=== PATIENT | female | born 1930 | race Caucasian/White ===

== ENCOUNTER 2016-04-04 16:41 | Emergency (ER) | payer MEDICARE, OTHER ==
--- NOTE | 2016-04-04 17:48 | Emergency Department Record ---
History of Present Illness - General Chief Complaint: Fall Injury Stated Complaint: FALL INJURY,FACE HAND,LEG Time Seen by Provider: 04/04/16 16:54 Source: Patient Mode of Arrival: Wheelchair Limitations: No limitations - History of Present Illness Initial Comments: pt tripped over a laundry basket and injured her r hand and r hip and l cheek. no loc. MD Complaint: Fall Onset/Timin -: Hour(s) Fall From: Standing When Fall Occurred: 1 hour [employer] Fall Witnessed: No Place Fall Occurred: Home Loss of Consciousness: None Prolonged Down Time?: No Symptoms Prior to Fall: None Location: Face, Other Location - Extremities: Right: Hand, Thigh Severity: Mild Severity scale (1-10): 3 Quality: Aching Context: Tripped/slipped Associated Symptoms: Denies - Mark Coma Scale Eye Response: (4) Open spontaneously Motor Response: (6) Obeys commands Verbal Response: (5) Oriented Mark Total: 15 - Related Data Home Medications Medication Instructions Recorded Confirmed Last Taken Levothyroxine Sodium [Synthroid] 75 mcg PO DAILY 03/24/15 04/04/16 04/04/16 Donepezil HCl [Aricept] 5 mg PO DAILY 08/12/15 04/04/16 04/04/16 Losartan Potassium [Cozaar] 100 mg PO DAILY 08/12/15 04/04/16 04/04/16 Nebivolol HCl [Bystolic] 10 mg PO DAILY 08/12/15 04/04/16 04/04/16 Clonidine [Clonidine] 1 patch TOP DAILY 10/21/15 04/04/16 04/04/16 Memantine HCl 5 mg PO BID 10/21/15 04/04/16 04/04/16 Aspirin 81 mg PO DAILY 04/04/16 04/04/16 04/04/16 Allergies Allergy/AdvReac Type Severity Reaction Status Date / Time No Known Drug Allergies Allergy Verified 04/04/16 16:46 Travel Screening - Travel/Exposure Within Last 30 Days Have you traveled within the last 30 days?: No Review of Systems Reviewed: No additional complaints except as noted below Constitutional: Reports: As per HPI. Denies: Chills, Fever, Malaise, Night sweats, Weakness, Weight change Eyes: Reports: As per HPI. Denies: Eye discharge, Eye pain, Photophobia, Vision change ENT: Reports: As per HPI. Denies: Congestion, Dental pain, Ear pain, Epistaxis , Hearing loss, Throat pain Respiratory: Reports: As per HPI. Denies: Cough, Dyspnea, Hemoptysis, Stridor, Wheezes Cardiovascular: Reports: As per HPI. Denies: Arrhythmia, Chest pain, Dyspnea on exertion, Edema, Murmurs, Orthopnea, Palpitations, Paroxysmal nocturnal dyspnea, Rheumatic Fever, Syncope Endocrine: Reports: As per HPI. Denies: Fatigue, Heat or cold intolerance, Polydipsia, Polyuria Gastrointestinal: Reports: As per HPI. Denies: Abdominal pain, Constipation, Diarrhea, Hematemesis, Hematochezia, Melena, Nausea, Vomiting Genitourinary: Reports: As per HPI. Denies: Abnormal menses, Discharge, Dyspareunia, Dysuria, Frequency, Hematuria, Incontinence, Retention, Urgency Musculoskeletal: Reports: As per HPI. Denies: Arthralgia, Back pain, Gout, Joint swelling, Myalgia, Neck pain Skin: Reports: As per HPI. Denies: Bruising, Change in color, Change in hair/ nails, Lesions, Pruritus, Rash Neurological: Reports: As per HPI. Denies: Abnormal gait, Confusion, Headache, Numbness, Paresthesias, Seizure, Tingling, Tremors, Vertigo, Weakness Psychiatric: Reports: As per HPI. Denies: Anxiety, Auditory hallucinations, Depression, Homicidal thoughts, Suicidal thoughts, Visual hallucinations Hematological/Lymphatic: Reports: As per HPI. Denies: Anemia, Blood Clots, Easy bleeding, Easy bruising, Swollen glands Past Medical History - SOCIAL HISTORY Smoking Status: Former smoker Alcohol Use: None Drug Use: None - RESPIRATORY Hx Respiratory Disorders: No - CARDIOVASCULAR Hx Cardio Disorders: Yes Hx Abnormal EKG: Yes Hx Chest Pain: Yes Hx Hypertension: Yes - NEURO Hx Neuro Disorders: No - GI Hx GI Disorders: No - Hx Genitourinary Disorders: No - ENDOCRINE Hx Endocrine Disorders: Yes Hx Thyroid Disease: Yes - MUSCULOSKELETAL Hx Musculoskeletal Disorders: No - PSYCH Hx Psych Problems: No - HEMATOLOGY/ONCOLOGY Hx Hematology/Oncology Disorders: Yes Hx Cancer: Yes (breast) Family Medical History Any Significant Family History?: Yes Hx Heart Disease: Father Physical Exam - General General Appearance: Alert, Oriented x3, Cooperative, Mild distress - Head Head exam: Normal inspection Head exam detail: Abrasion, Contusion Image of Face/Head: 1 - abrasions and contusions - Eye Eye exam: Normal appearance, PERRL, EOMI Pupils: Normal accommodation - ENT ENT exam: Normal exam, Mucous membranes moist, Normal external ear exam, Normal orophraynx, TM's normal bilaterally Ear exam: Normal external inspection. negative: External canal tenderness Nasal Exam: Normal inspection. negative: Discharge, Sinus tenderness Mouth exam: Normal external inspection, Tongue normal Teeth exam: Normal inspection. negative: Dental caries Throat exam: Normal inspection. negative: Tonsillar erythema, Tonsillar exudate - Neck Neck exam: Normal inspection, Full ROM. negative: Tenderness - Respiratory Respiratory exam: Normal lung sounds bilaterally. negative: Respiratory distress - Cardiovascular Cardiovascular Exam: Regular rate, Normal rhythm, Normal heart sounds - GI/Abdominal GI/Abdominal exam: Soft, Normal bowel sounds. negative: Tenderness - Rectal Rectal exam: Deferred - exam: Deferred - Extremities Extremities exam: Normal inspection, Normal capillary refill, Tenderness, Other (r hip tendernes but from). negative: Full ROM Image of Hand: 1 - ecchymosis, swelling, tenderness, bony deformity - Back Back exam: Reports: Normal inspection, Full ROM. Denies: Muscle spasm, Rash noted, Tenderness - Neurological Neurological exam: Alert, CN II-XII intact, Normal gait, Oriented X3 - Psychiatric Psychiatric exam: Normal affect, Normal mood - Skin Skin exam: Dry, Intact, Normal color, Warm Course Vital Signs 04/04/16 04/04/16 16:49 16:55 Temperature 97.7 F Pulse Rate 70 Respiratory 18 Rate Blood Pressure 225/99 Blood Pressure 191/86 [Left Arm] Pulse Ox 96 - Reevaluation(s) Reevaluation #1: 04/04/16 19:18 post reduction shows marked improvement of fx. Disposition Disposition: Discharge Clinical Impression: Fracture of multiple phalanges of digit of hand Disposition: Home, Self-Care Condition: (1) Good Instructions: Fall Prevention for Older Adults (ED) Additional Instructions: follow up with dr lindsay. ice and elevate. return sooner if worse. call dr bravo office tomorrow to sched appt Referrals: SHAMEKA LINDSAY [DOCTOR OF OSTEOPATH] - [facility] [Provider Group] Forms: Patient Portal Access
--- NOTE | 2016-04-09 14:17 | RADIOLOGY REPORT ---
EXAM: RIGHT HIP WITH PELVIS HISTORY: FELL TODAY. RIGHT HIP PAIN. PREVIOUS RIGHT HIP SURGERY. TECHNIQUE: An AP view of the pelvis and AP and lateral views of the right hip were obtained. Comparison: 11/01/15. FINDINGS: The patient is status post right total hip arthroplasty. The orthopedic components appear stable. The bones are osteopenic. There is no acute fracture or dislocation. The bony pelvis appears intact. IMPRESSION: 1. NO ACUTE HIP OR PELVIC PATHOLOGY IDENTIFIED. 2. STATUS POST RIGHT TOTAL HIP ARTHROPLASTY. JOB NUMBER: [id number] MTDD
--- NOTE | 2016-04-09 14:21 | RADIOLOGY REPORT ---
EXAM: RIGHT HAND HISTORY: FELL TODAY. RIGHT HAND PAIN. TECHNIQUE: Three views of the right hand were obtained. Comparison: Previous right wrist series dated 01/27/14. FINDINGS: There is a displaced transverse fracture within the proximal metaphysis of the fifth proximal phalanx. The distal fragment is displaced to the palmar aspect with overlapping of the fracture fragments. There is apex radial and palmar angulation. The remaining osseous structures appear intact. The bones are diffusely osteopenic. Diffuse arthritic changes are also present. IMPRESSION: 1. DISPLACED TRANSVERSE FRACTURE WITHIN THE PROXIMAL METAPHYSIS OF THE FIFTH PROXIMAL PHALANX WITH OVERLAPPING OF THE FRACTURE FRAGMENTS AND ASSOCIATED ANGULATION. 2. DIFFUSE OSTEOPENIA AND ARTHRITIC CHANGES. 3. NOT MENTIONED ABOVE, THERE IS AN OLD UNUNITED ULNAR STYLOID PROCESS FRACTURE. JOB NUMBER: [id number] MTDD
--- NOTE | 2016-04-09 14:24 | RADIOLOGY REPORT ---
EXAM: RIGHT HAND, HISTORY: POST REDUCTION VIEWS. TECHNIQUE: Three views of the right hand were obtained. Comparison: 04/04/16. Encounter: Initial. FINDINGS: There has been interval reduction of the previously noted fracture within the proximal metaphysis of the fifth proximal phalanx. The alignment and positioning are much improved from the prior study. There is residual palmar displacement of the distal fragment with mild apex palmar angulation. The remaining osseous structures appear intact. IMPRESSION: MARKED IMPROVEMENT OF THE ALIGNMENT AND POSITIONING OF THE FIFTH PROXIMAL PHALANGEAL FRACTURE. THERE IS MILD RESIDUAL PALMAR DISPLACEMENT AND APEX PALMAR ANGULATION. JOB NUMBER: [id number] MTDD
== END 2016-04-04 19:55 | disposition home or self-care (01) ==
LOC: ER 16:41
DX: S62.616A Displaced fracture of proximal phalanx of right little finger, initial encounter for closed fracture (principal); S00.81XA Abrasion of other part of head, initial encounter; S00.83XA Contusion of other part of head, initial encounter; M25.551 Pain in right hip; W18.09XA Striking against other object with subsequent fall, initial encounter; Y92.009 Unspecified place in unspecified non-institutional (private) residence as the place of occurrence of the external cause
CPT/HCPCS: 26725; 99283; 99284

== ENCOUNTER 2016-04-11 11:40 | Day surgery (SDC) | payer MEDICARE, OTHER ==
[2016-04-11 13:13] LABS: BASO % 0.7 % (0-6); EOS % 3.4 % (0-6); GRAN % 77.8 % (47-80); HEMATOCRIT 41.7 % (35.0-47.0); HEMOGLOBIN 13.6 gm/dl (11.6-16.0); LYMPH % 11.4 % (16-45); MEAN CELL VOLUME 86.9 fl (81-97); MEAN CORPUSCULAR HEMOGLOBIN 28.3 pg (27-33); MEAN CORPUSCULAR HGB CONC 32.6 g/dl (32-36); MEAN PLATELET VOLUME 9.7 fl (7.4-10.4); MONO % 6.7 % (0-9); PLATELET COUNT 329 K/uL (130-400); RED CELL DISTRIBUTION WIDTH 14.9 % (11.5-14.5)
[2016-04-11 13:26] LABS: ANION GAP 10.9 (7-16); BLOOD UREA NITROGEN 15 mg/dL (7-17); CARBON DIOXIDE 23.1 mmol/L (22-30); CREATININE 0.8 mg/dL (0.52-1.04); EST GLOMERULAR FILTRATION RATE > 60 ml/min; GLUCOSE,RANDOM 78 mg/dL (70-110)
[2016-04-11] MEDS ORDERED: *PACU ONLY* KETAMINE HCL 10 MG/ML (20ML) VIAL IV ONE (14:00)
[2016-04-11] MEDS ORDERED: FENTANYL PF 100MCG/2ML VIAL IV ONE (14:00)
[2016-04-11] MEDS ORDERED: ACETAMINOPHEN 100 ML IV ONE (14:00)
[2016-04-11] MEDS ORDERED: MIDAZOLAM HCL 2MG/2ML VIAL IV ONE (14:00)
--- NOTE | 2016-04-13 10:29 | Operative Note ---
DATE OF SURGERY: 04/11/2016. SURGEON: Shaan Howe D.O. REFERRING PHYSICIAN: Bryn Andrade D.O. PREOPERATIVE DIAGNOSIS: TRANSVERSE DISPLACED ANGULATED FRACTURE OF THE PROXIMAL PHALANX OF THE RIGHT LITTLE FINGER. POSTOPERATIVE DIAGNOSIS: TRANSVERSE DISPLACED ANGULATED FRACTURE OF THE PROXIMAL PHALANX OF THE RIGHT LITTLE FINGER. OPERATIVE PROCEDURE: Closed reduction percutaneous pinning of the proximal phalanx of the right little finger. DESCRIPTION OF PROCEDURE: This 85-year-old female was taken to the operating room and was placed in the supine position on the operating room table. A [place] block anesthetic was administered. The right upper extremity was elevated and prepped with Hibiclens and draped in the usual sterile fashion. The image intensifier was brought into the operative field and closed reduction of the fracture was easily accomplished. The image intensifier was used to confirm position and alignment of the fracture fragments. Subsequently two 0.45 K- wires were advanced in a crisscross fashion across the fracture site. Again, the image intensifier was used to confirm position and alignment of the fracture fragments as well as the pins. These were found to be satisfactory. The pins were then cut off and bent over. Sterile dressings with plaster splint immobilization were applied. The patient was taken to the recovery room in satisfactory condition. GROSS PATHOLOGY: This patient demonstrated an apex anterior angulated fracture , transverse in nature, at the metaphyseal-diaphyseal junction with about 45 degrees of angulation. There was some slight displacement of the fracture as well. This was then corrected, and the fracture was manipulated into very near anatomic position. K-wires were used to traverse the fracture site to stabilize the fracture fragments. Sterile dressings were applied and the patient was taken to the recovery room as described. Shaan Howe D.O. Date Time Job Number: [id number] MTDD
== END 2016-04-11 17:00 | disposition home or self-care (01) ==
LOC: SUR 11:40
PROVIDERS: ATTEND Orthopaedic Surgery
DX: S62.616A Displaced fracture of proximal phalanx of right little finger, initial encounter for closed fracture (principal); E03.9 Hypothyroidism, unspecified; I10 Essential (primary) hypertension
CPT/HCPCS: 26727; 01820; 85025; 80048; 76000; 93005; 93010; J3010

== ENCOUNTER 2016-11-28 22:41 | Emergency (ER) | payer MEDICARE, OTHER ==
--- NOTE | 2016-11-28 22:57 | Emergency Department Record ---
History of Present Illness - General Chief Complaint: Dizziness Stated Complaint: DIZZY Time Seen by Provider: 11/28/16 22:55 Source: Patient Mode of Arrival: Ambulatory Limitations: No limitations - History of Present Illness Initial Comments: 86 yo female with a past medical history significant history for dementia presents to ED for evaluation of "ringing in my ears" per the for the past 6-8 hours. Patient denies any recent ear trauma, denies drainage from the ears, and denies change in hearing. Patient reports a history of her symptoms previously as well. Patient denies fevers, chills, or dental pain/sore throat symptoms on examination. Patient denies being off balance with ambulation. MD Complaint: Other Onset/Timin -: Hour(s) Timing: Unsure History of Same: Yes History of Trauma: No Severity: Moderate Improves With: Nothing Worsens With: Nothing Associated Symptoms: Denies other symptoms - Mark Coma Scale Eye Response: (4) Open spontaneously Motor Response: (6) Obeys commands Verbal Response: (5) Oriented Mark Total: 15 - Related Data Allergies Allergy/AdvReac Type Severity Reaction Status Date / Time morphine Allergy RASH Verified 04/11/16 13:49 Travel Screening - Travel/Exposure Within Last 30 Days Have you traveled within the last 30 days?: No - Travel Symptoms Symptom Screening: None Review of Systems Constitutional: Denies: Chills, Fever, Malaise, Night sweats Eyes: Denies: Eye discharge, Eye pain ENT: Reports: Other (ringing in the ears). Denies: Congestion, Ear pain, Epistaxis Respiratory: Denies: Cough, Dyspnea Cardiovascular: Denies: Chest pain, Dyspnea on exertion Endocrine: Denies: Fatigue, Heat or cold intolerance Gastrointestinal: Denies: Abdominal pain, Nausea, Vomiting Genitourinary: Denies: Incontinence, Retention Musculoskeletal: Denies: Arthralgia, Back pain Skin: Denies: Bruising, Change in color Neurological: Denies: Abnormal gait, Confusion, Headache, Seizure Psychiatric: Denies: Anxiety Hematological/Lymphatic: Denies: Anemia, Blood Clots Past Medical History - SOCIAL HISTORY Smoking Status: Former smoker - RESPIRATORY Hx Respiratory Disorders: No - CARDIOVASCULAR Hx Cardio Disorders: Yes Hx Abnormal EKG: Yes Hx Hypertension: Yes - NEURO Hx Neuro Disorders: No - GI Hx GI Disorders: No - Hx Genitourinary Disorders: No - ENDOCRINE Hx Endocrine Disorders: Yes Hx Thyroid Disease: Yes - MUSCULOSKELETAL Hx Musculoskeletal Disorders: No - PSYCH Hx Psych Problems: No - HEMATOLOGY/ONCOLOGY Hx Hematology/Oncology Disorders: Yes Hx Cancer: Yes (breast) Family Medical History Any Significant Family History?: Yes Hx Heart Disease: Father Physical Exam - General General Appearance: Alert, Cooperative, No acute distress Limitations: No limitations - Head Head exam: Atraumatic, Normocephalic, Normal inspection Head exam detail: negative: Abrasion, Contusion, Kenny's sign, General tenderness, Hematoma, Laceration - Eye Eye exam: Normal appearance. negative: Conjunctival injection, Periorbital swelling, Periorbital tenderness, Scleral icterus - ENT Ear exam: Other (TMs appear normal). negative: Auricular hematoma, Auricular trauma, External canal tenderness Nasal Exam: negative: Active bleeding, Discharge, Dried blood, Foreign body Mouth exam: negative: Drooling, Laceration, Muffled voice, Tongue elevation - Neck Neck exam: Normal inspection. negative: Meningismus, Tenderness - Respiratory Respiratory exam: Normal lung sounds bilaterally. negative: Rales, Respiratory distress, Rhonchi, Stridor - Cardiovascular Cardiovascular Exam: Regular rate, Normal rhythm, Normal heart sounds - GI/Abdominal GI/Abdominal exam: Soft. negative: Rebound, Rigid, Tenderness - Rectal Rectal exam: Deferred - exam: Deferred - Extremities Extremities exam: Normal inspection. negative: Calf tenderness, Pedal edema, Tenderness - Back Back exam: Denies: CVA tenderness (R), CVA tenderness (L) - Neurological Neurological exam: Alert, Normal gait, Oriented X3 - Psychiatric Psychiatric exam: Normal affect, Normal mood - Skin Skin exam: Normal color. negative: Abrasion Type of lesion: negative: abrasion Course Vital Signs 11/28/16 22:49 Temperature 97.9 F Pulse Rate [ 77 Pulse Ox Probe] Respiratory 20 Rate Blood Pressure 168/95 [Left Arm] Pulse Ox 92 L - Reevaluation(s) Reevaluation #1: 11/28/16 23:00 Patient seen and examined, ambulates with steady gait and ear exam appears normal. Symptoms appear c/w tinnitus that is intermittent in nature. Patient appears stable for discharge at this time with instructions for follow-up with her PCP in 3-5 days as directed. Disposition Disposition: Discharge Clinical Impression: Bilateral tinnitus Disposition: Home, Self-Care Condition: (2) Stable Instructions: Tinnitus (ED) Additional Instructions: Return to ED if your symptoms worsen or if you have any concerns. Follow-up with your family doctor in 3-5 days as directed. Forms: Patient Portal Access Time of Disposition: 22:56 Quality - Quality Measures Quality Measures: N/A - Blood Pressure Screening Does Patient Have Any of the Following: No Blood Pressure Classification: Pre-Hypertensive BP Reading Systolic Measurement: 136 Diastolic Measurement: 64 Screening for High Blood Pressure: < Pre-Hypertensive BP, F/U Documented > [ G8950] Pre-Hypertensive Follow-up Interventions: Referral to alternative/primary care provider.
== END 2016-11-28 23:12 | disposition home or self-care (01) ==
LOC: ER 22:41
DX: H93.13 Tinnitus, bilateral (principal); F03.90 Unspecified dementia, unspecified severity, without behavioral disturbance, psychotic disturbance, mood disturbance, and anxiety
CPT/HCPCS: 99282

== ENCOUNTER 2017-03-30 15:48 | Emergency (ER) | payer MEDICARE, OTHER ==
[2017-03-30] MEDS ORDERED: 0.9 % SODIUM CHLORIDE 1,000 ML BAG IV ONE (16:34)
[2017-03-30] MEDS ORDERED: 0.9 % SODIUM CHLORIDE 1000ML 1,000 ML IV ONE (16:56)
--- NOTE | 2017-03-30 16:57 | Emergency Department Record ---
History of Present Illness - General Chief complaint: Nausea, Vomiting, Diarrhea Stated complaint: COUGH,RUNNY NOSE,CHEST CONGESTION Time Seen by Provider: 03/30/17 16:34 Source: Patient, RN notes reviewed Mode of Arrival: Ambulatory - History of Present Illness Initial comments: COUGH AND WEAKNESS for about 7 days per and not eating much. She had a a large diarrhea here in the ED. -: Unknown Associated Abdominal Pain: No Improves with: None Worsens with: None Associated Symptoms: Cough, Loss of appetite, Malaise, Nausea/vomiting, Shortness of breath, Weakness - Related Data Allergies Allergy/AdvReac Type Severity Reaction Status Date / Time morphine Allergy RASH Verified 03/30/17 16:38 Travel Screening - Travel/Exposure Within Last 30 Days Have you traveled within the last 30 days?: No Review of Systems Reviewed: No additional complaints except as noted below Constitutional: Reports: As per HPI. Denies: Chills, Fever, Malaise, Night sweats, Weakness, Weight change Eyes: Reports: As per HPI. Denies: Eye discharge, Eye pain, Photophobia, Vision change ENT: Reports: As per HPI. Denies: Congestion, Dental pain, Ear pain, Epistaxis , Hearing loss, Throat pain Respiratory: Reports: As per HPI. Denies: Cough, Dyspnea, Hemoptysis, Stridor, Wheezes Cardiovascular: Reports: As per HPI. Denies: Arrhythmia, Chest pain, Dyspnea on exertion, Edema, Murmurs, Orthopnea, Palpitations, Paroxysmal nocturnal dyspnea, Rheumatic Fever, Syncope Endocrine: Reports: As per HPI. Denies: Fatigue, Heat or cold intolerance, Polydipsia, Polyuria Gastrointestinal: Reports: As per HPI. Denies: Abdominal pain, Constipation, Diarrhea, Hematemesis, Hematochezia, Melena, Nausea, Vomiting Genitourinary: Reports: As per HPI. Denies: Abnormal menses, Discharge, Dyspareunia, Dysuria, Frequency, Hematuria, Incontinence, Retention, Urgency Musculoskeletal: Reports: As per HPI. Denies: Arthralgia, Back pain, Gout, Joint swelling, Myalgia, Neck pain Skin: Reports: As per HPI. Denies: Bruising, Change in color, Change in hair/ nails, Lesions, Pruritus, Rash Neurological: Reports: As per HPI. Denies: Abnormal gait, Confusion, Headache, Numbness, Paresthesias, Seizure, Tingling, Tremors, Vertigo, Weakness Psychiatric: Reports: As per HPI. Denies: Anxiety, Auditory hallucinations, Depression, Homicidal thoughts, Suicidal thoughts, Visual hallucinations Hematological/Lymphatic: Reports: As per HPI. Denies: Anemia, Blood Clots, Easy bleeding, Easy bruising, Swollen glands Past Medical History - SOCIAL HISTORY Smoking Status: Former smoker Alcohol Use: None Drug Use: None - RESPIRATORY Hx Respiratory Disorders: No - CARDIOVASCULAR Hx Cardio Disorders: Yes Hx Abnormal EKG: Yes Hx Hypertension: Yes - NEURO Hx Neuro Disorders: No - GI Hx GI Disorders: No - Hx Genitourinary Disorders: No - ENDOCRINE Hx Endocrine Disorders: Yes Hx Thyroid Disease: Yes - MUSCULOSKELETAL Hx Musculoskeletal Disorders: No - PSYCH Hx Psych Problems: No - HEMATOLOGY/ONCOLOGY Hx Hematology/Oncology Disorders: Yes Hx Cancer: Yes (breast) Family Medical History Any Significant Family History?: Yes Hx Heart Disease: Father Physical Exam - General General Appearance: Alert, Oriented x3, Cooperative, No acute distress - Head Head exam: Normal inspection - Eye Eye exam: Normal appearance, PERRL Pupils: Normal accommodation - ENT ENT exam: Normal exam, Mucous membranes moist, Normal external ear exam, Normal orophraynx, TM's normal bilaterally Ear exam: Normal external inspection. negative: External canal tenderness Nasal Exam: Normal inspection. negative: Discharge, Sinus tenderness Mouth exam: Normal external inspection, Tongue normal Teeth exam: Normal inspection. negative: Dental caries Throat exam: Normal inspection. negative: Tonsillar erythema, Tonsillar exudate - Neck Neck exam: Normal inspection, Full ROM. negative: Tenderness - Respiratory Respiratory exam: Normal lung sounds bilaterally. negative: Respiratory distress - Cardiovascular Cardiovascular Exam: Regular rate, Normal rhythm, Normal heart sounds - GI/Abdominal GI/Abdominal exam: Soft, Normal bowel sounds. negative: Tenderness - Rectal Rectal exam: Deferred - exam: Deferred - Extremities Extremities exam: Normal inspection, Full ROM, Normal capillary refill. negative: Tenderness - Back Back exam: Reports: Normal inspection, Full ROM. Denies: Muscle spasm, Rash noted, Tenderness - Neurological Neurological exam: Alert, Normal gait, Oriented X3, Reflexes normal - Psychiatric Psychiatric exam: Normal affect, Normal mood - Skin Skin exam: Dry, Intact, Normal color, Warm Course Vital Signs 03/30/17 16:38 Temperature 98.1 F Pulse Rate 74 Respiratory 16 Rate Blood Pressure 140/59 Pulse Ox 93 L Medical Decision Making - Lab Data Result diagrams: 03/30/17 16:53 03/30/17 16:53 Disposition Clinical Impression: Bronchitis, Influenza Disposition: Home, Self-Care Condition: (1) Good Instructions: Influenza (ED) Additional Instructions: follow up with Dr. Andrade on thurs Forms: Patient Portal Access Time of Disposition: 18:11 Quality - Quality Measures Quality Measures: N/A - Blood Pressure Screening Does Patient Have Any of the Following: No Blood Pressure Classification: Hypertensive Reading Systolic Measurement: 140 Diastolic Measurement: 59 Screening for High Blood Pressure: < Pre-Hypertensive BP, F/U Documented > [ G8950] Pre-Hypertensive Follow-up Interventions: Referral to alternative/primary care provider.
[2017-03-30] MEDS ORDERED: 0.9 % SODIUM CHLORIDE 1000ML 1,000 ML IV PRN (16:59)
[2017-03-30 17:18] LABS: HEMATOCRIT 43.5 % (35.0-47.0); HEMOGLOBIN 14.6 gm/dl (11.6-16.0); MEAN CELL VOLUME 87.5 fl (81-97); MEAN CORPUSCULAR HEMOGLOBIN 29.4 pg (27-33); MEAN CORPUSCULAR HGB CONC 33.6 g/dl (32-36); PLATELET COUNT 384 K/uL (130-400); RED BLOOD COUNT 4.97 M/uL (3.80-5.40); RED CELL DISTRIBUTION WIDTH 14.5 % (11.5-14.5); WHITE BLOOD COUNT W/O DIFF 11.5 K/uL (4.2-12.2)
[2017-03-30 17:33] LABS: INFLUENZA A POSITIVE (NEGATIVE); INFLUENZA B NEGATIVE (NEGATIVE)
[2017-03-30 17:40] LABS: BLOOD UREA NITROGEN 15 mg/dL (8-23); CREATININE 0.9 mg/dL (0.5-0.9); EST GLOMERULAR FILTRATION RATE > 60 mL/min
[2017-03-30 17:43] LABS: GLUCOSE,RANDOM 138 mg/dL (74-109)
[2017-03-30 17:45] LABS: ALBUMIN 3.2 g/dL (4.0-5.0); ALT/SGPT 9 U/L (<33); AST/SGOT 11 U/L (10.0-35.0)
[2017-03-30 17:46] LABS: ALKALINE PHOSPHATASE 111 U/L (35-104)
[2017-03-30 17:49] LABS: BILIRUBIN,DIRECT < 0.2 mg/dL (0-0.3)
--- NOTE | 2017-03-31 07:31 | RADIOLOGY REPORT ---
EXAM: CHEST, TWO VIEWS HISTORY: DIFFICULTY BREATHING. TECHNIQUE: Frontal and lateral views of the chest were performed. FINDINGS: The heart size is normal. The lungs are hyperinflated. No acute type infiltrate or pleural effusion. There is a tortuous thoracic aorta. IMPRESSION: HYPERINFLATED LUNGS. NO ACUTE TYPE INFILTRATE OR PLEURAL EFFUSION. JOB NUMBER: [id number] MTDD
== END 2017-03-30 19:06 | disposition home or self-care (01) ==
LOC: ER 15:48
DX: J10.1 Influenza due to other identified influenza virus with other respiratory manifestations (principal); R11.2 Nausea with vomiting, unspecified; R19.7 Diarrhea, unspecified; R06.00 Dyspnea, unspecified; I10 Essential (primary) hypertension; Z87.891 Personal history of nicotine dependence
CPT/HCPCS: 71046; 80048; 80076; 85027; 87400; 93005; 93010; 96360; 96361; 99284; J7030